=== PATIENT | female | born 1985 | race Caucasian/White ===

== ENCOUNTER 2019-05-14 15:23 | Observation (INO) | payer BC ==
[~2019-05-14] VITALS: Ht 162.6 cm; Wt 68.0 kg
[2019-05-14] MEDS ORDERED: TERBUTALINE SULFATE 1 MG/ML VIAL SUBCUT ONE ×2 (16:30→19:19)
[2019-05-14] MEDS ORDERED: TERBUTALINE SULFATE 1 MG/ML VIAL SUBCUT PRN (18:00)
== END 2019-05-14 19:20 | disposition home or self-care (01) ==
LOC: SPU 15:23
PROVIDERS: ADMIT Specialist; ATTEND Specialist
DX: O26.853 Spotting complicating pregnancy, third trimester (principal); Z3A.35 35 weeks gestation of pregnancy
CPT/HCPCS: 96372; G0378; J3105

== ENCOUNTER 2019-06-06 10:25 | Inpatient (IN) | payer BC ==
[~2019-06-06] VITALS: Ht 162.6 cm; Wt 72.1 kg
[2019-06-06] MEDS ORDERED: CEFAZOLIN 2 GM IVPB PREMIX 50 ML IV ONE (10:45)
[2019-06-06] MEDS ORDERED: METOCLOPRAMIDE HCL 10 MG/2 ML VIAL IVP ONE (10:45)
[2019-06-06] MEDS ORDERED: LR 1,000 ML IV ONE (10:45)
[2019-06-06] MEDS ORDERED: CITRIC ACID/SODIUM CITRATE 30 ML UDC PO ONE (10:45)
[2019-06-06 11:58] LABS: BASOPHILS % (AUTO) 0.2 % (0.0-2.0); EOSINOPHILS % (AUTO) 0.3 % (0.0-4.0); HEMATOCRIT 35.9 % (36-48); HEMOGLOBIN 12.2 g/dL (12.0-16.0); LYMPHOCYTES # (AUTO) 2.4 K/uL (1.0-5.5); LYMPHOCYTES % (AUTO) 24.4 % (20.5-51.5); MEAN CORPUSCULAR HEMOGLOBIN 33 pg (27-31); MEAN CORPUSCULAR HGB CONC 34 % (32-36); MEAN CORPUSCULAR VOLUME 96 fL (79.0-98.0); MONOCYTES # (AUTO) 0.5 K/uL (0.0-1.0); NEUTROPHILS % (AUTO) 70.1 % (40.0-70.0); PLATELET COUNT (AUTO) 244 K/uL (130-430); RED BLOOD CELL COUNT(AUTO) 3.74 MIL/uL (4.2-6.2); RED CELL DISTRIBUTION WIDTH 12.6 % (9.0-15.0)
[2019-06-06 13:01] LABS: BILIRUBIN,URINE NEGATIVE (NEGATIVE); BLOOD, URINE NEGATIVE (NEGATIVE); CLARITY/URINE SL CLOUDY (CLEAR); COLOR,URINE YELLOW (YELLOW); GLUCOSE,URINE NEGATIVE (NEGATIVE); KETONES,URINE TRACE (NEGATIVE); LEUKOCYTE ESTERASE ,URINE 3+ (NEGATIVE); NITRITE, URINE NEGATIVE (NEGATIVE); PROTEIN URINE NEGATIVE (NEGATIVE)
[2019-06-06] MEDS ORDERED: MORPHINE SULFATE 10MG/10ML PF AMP EP ONE (13:22)
[2019-06-06] MEDS ORDERED: PHENYLEPHRINE HCL 10 MG/ML VIAL (NEOSYNEPHRINE) IV ONE (13:22)
[2019-06-06] MEDS ORDERED: DIBUCAINE RC ONE (13:22)
[2019-06-06] MEDS ORDERED: NS IRRIG SOLN 1000 ML IR ONE (13:22)
[2019-06-06] MEDS ORDERED: BUPIVACAINE /PF 0.75% 10 ML VIAL INJ ONE (13:22)
[2019-06-06] MEDS ORDERED: ONDANSETRON HCL 4 MG/2 ML VIAL IVP ONE (13:22)
[2019-06-06] MEDS ORDERED: LR 1,000 ML IV.SOLN IV ONE (13:22)
[2019-06-06 13:32] LABS: BACTERIA,URINE MODERATE /HPF (None Seen); MUCUS,URINE 2+ /LPF (None Seen); YEAST,URINE None Seen /HPF (None Seen)
[2019-06-06] MEDS ORDERED: LR 1,000 ML IV SCH (14:17)
[2019-06-06 14:20] VITALS: BP_SYST 100
[2019-06-06] MEDS ORDERED: RHO(D) IMMUNE GLOBULIN/MALTOSE 1500 UNITS/1.3 ML (WINHRO) IM PRN (14:30)
[2019-06-06] MEDS ORDERED: DIPH-TET-PERTUS Vaccine 0.5 ML VIAL (ADACEL) I.M. PRN (14:30)
[2019-06-06] MEDS ORDERED: BISACODYL 10 MG/SUPPOSITORY RC PRN (14:30)
[2019-06-06] MEDS ORDERED: ANUSOL 1 EA SUPP.RECT (PREPARATION H) RC PRN (14:30)
[2019-06-06] MEDS ORDERED: DIPHENHYDRAMINE INJ 50 MG/ML VIAL IM PRN (14:30)
[2019-06-06] MEDS ORDERED: OXYCODONE/ACETAMINOPHEN 5-325 TABLET PO PRN (14:30)
[2019-06-06] MEDS ORDERED: LANOLIN 7 GM OINT. TP PRN (14:30)
[2019-06-06] MEDS ORDERED: KETOROLAC TROMETHAMINE 60 MG/2 ML VIAL IM PRN (14:30)
[2019-06-06] MEDS ORDERED: NALOXONE HCL 0.4 MG/ML AMP (NARCAN) IVP PRN (14:30)
[2019-06-06] MEDS ORDERED: MORPHINE SULFATE 10MG/10ML PF AMP SP SCH (14:30)
[2019-06-06] MEDS ORDERED: TEMAZEPAM 15 MG CAPSULE PO PRN (14:30)
[2019-06-06] MEDS ORDERED: MEASLES,MUMPS&RUBELLA VACC/PF 12500 UNIT/0.5 ML VIAL SUBQ PRN (14:30)
[2019-06-06] MEDS ORDERED: SENNOSIDES/DOCUSATE SODIUM 1 TAB TABLET(SENOKOT-S) PO PRN (14:30)
[2019-06-06] MEDS ORDERED: HYDROcodone/ACETAMIN 5-325 MG TAB (NORCO/ VICODIN) PO PRN (14:30)
[2019-06-06] MEDS ORDERED: OXYCODONE/ACETAMINOPHEN *10*mg/325 mg TABLET PO PRN (14:30)
[2019-06-06] MEDS ORDERED: ONDANSETRON HCL 4 MG/2 ML VIAL IVP PRN (14:30)
[2019-06-06] MEDS ORDERED: OXYTOCIN/0.9 % SODIUM CHLORIDE 1,000 ML IV ONE (15:09)
[2019-06-06] MEDS: OXYTOCIN/0.9 % SODIUM CHLORIDE 1,000 ML IV SCH ×2 (15:15→23:55)
[2019-06-06] MEDS: CEFAZOLIN 1 GM IVPB PREMIX 50 ML IV SCH ×2 (17:55→23:55)
[2019-06-06] MEDS: SIMETHICONE 80 MG TAB.CHEW PO PRN (23:54)
[2019-06-06] MEDS: KETOROLAC TROMETHAMINE 30 MG VIAL IVP SCH (23:55)
[2019-06-07] MEDS: DOCUSATE SODIUM 100 MG CAPSULE PO PRN (05:35)
[2019-06-07] MEDS: SIMETHICONE 80 MG TAB.CHEW PO PRN ×3 (05:35→15:01)
[2019-06-07] MEDS: CEFAZOLIN 1 GM IVPB PREMIX 50 ML IV SCH (05:36)
[2019-06-07] MEDS: KETOROLAC TROMETHAMINE 30 MG VIAL IVP SCH ×3 (05:36→18:12)
[2019-06-07 08:11] LABS: BASOPHILS % (AUTO) 0.1 % (0.0-2.0); EOSINOPHILS % (AUTO) 0.2 % (0.0-4.0); HEMATOCRIT 32.6 % (36-48); HEMOGLOBIN 10.9 g/dL (12.0-16.0); LYMPHOCYTES # (AUTO) 1.6 K/uL (1.0-5.5); LYMPHOCYTES % (AUTO) 12.3 % (20.5-51.5); MEAN CORPUSCULAR HEMOGLOBIN 32 pg (27-31); MEAN CORPUSCULAR HGB CONC 33 % (32-36); MEAN CORPUSCULAR VOLUME 97 fL (79.0-98.0); MONOCYTES # (AUTO) 0.8 K/uL (0.0-1.0); MONOCYTES % (AUTO) 6.5 % (1.7-9.3); NEUTROPHILS # (AUTO) 10.5 K/uL (1.8-7.7); NEUTROPHILS % (AUTO) 80.9 % (40.0-70.0); PLATELET COUNT (AUTO) 188 K/uL (130-430); RED BLOOD CELL COUNT(AUTO) 3.38 MIL/uL (4.2-6.2)
[2019-06-08] MEDS: IBUPROFEN 600 MG TABLET PO SCH ×3 (00:03→12:37)
[2019-06-08] MEDS: DOCUSATE SODIUM 100 MG CAPSULE PO PRN ×2 (00:03→11:22)
[2019-06-08] MEDS: SIMETHICONE 80 MG TAB.CHEW PO PRN (00:04)
== END 2019-06-08 15:25 | disposition home or self-care (01) | DRG 787 ==
LOC: SPU 10:25
PROVIDERS: ADMIT Specialist; ATTEND Specialist
PROC: 10D00Z1 Extraction of Products of Conception, Low, Open Approach (ICD-10-PCS; principal; 2019-06-06 13:20)
DX: O32.1XX0 Maternal care for breech presentation, not applicable or unspecified (principal); R71.0 Precipitous drop in hematocrit; O69.81X0 Labor and delivery complicated by cord around neck, without compression, not applicable or unspecified; O36.63X0 Maternal care for excessive fetal growth, third trimester, not applicable or unspecified; Z37.0 Single live birth; Z3A.39 39 weeks gestation of pregnancy
CPT/HCPCS: 36415; 81000-TC; 85025; 86592; 86886; 86900; 86901; 87086; 94760; J0690; J1885; J2274; J2370; J2405; J2590; J3490; J7120